=== PATIENT | female | born 1970 | race Caucasian/White ===

== ENCOUNTER 2019-02-03 12:26 | Emergency (ER) | payer OTHER ==
[~2019-02-03] VITALS: Ht 165.1 cm; Wt 90.7 kg
--- OUTSIDE RECORDS SUMMARY | 2019-02-03 12:29 | XMS REPORT ---
Author Author POLA BRANDT Organization [facility] Address [address] [place] [address] Care Team Providers Care Finance Advisor Name Role Phone KARLYARAVINDPOLA Unavailable PROBLEMS Type Condition ICD9-CM Code CFC21-VG Code Onset Dates Condition Status SNOMED Code Problem Mixed hyperlipidemia E78.2 Active 667174241 Problem Vitamin D deficiency E55.9 Active 04350191 ALLERGIES No Information ENCOUNTERS Encounter Location Date Diagnosis [facility] [id number] [place] [phone]- [phone] Jan, [facility] [address] [place] [phone] Dec, [facility] [id number] [place] [address] 40346- 2454 Dec, Pain in right shoulder M25.511 ; Pain in left shoulder M25.512 and Rash R21 [facility] [address] [place] [address] [phone]- [phone] Dec, Pain in right shoulder M25.511 ; Pain in left shoulder M25.512 and Rash R21 IMMUNIZATIONS No Known Immunizations SOCIAL HISTORY Never Assessed REASON FOR VISIT Medication question PLAN OF CARE VITAL SIGNS MEDICATIONS Unknown Medications RESULTS No Results PROCEDURES No Known procedures INSTRUCTIONS MEDICATIONS ADMINISTERED No Known Medications MEDICAL (GENERAL) HISTORY Type Description Date Surgical History Hysterectomy 05/2017 Hospitalization History Surgery 05/2017
--- OUTSIDE RECORDS SUMMARY | 2019-02-03 12:29 | XMS REPORT ---
Author Author POLA BRANDT Organization [facility] [place] Address [address] [place] [address] Care Team Providers Care Assistant Real Estate Manager Name Role Phone KARLYARAVINDPOLA Unavailable PROBLEMS Type Condition ICD9-CM Code [id number]-VH Code Onset Dates Condition Status SNOMED Code Problem Mixed hyperlipidemia E78.2 Active 906698754 Problem Vitamin D deficiency E55.9 Active 55124185 ALLERGIES No Information ENCOUNTERS Encounter Location Date Diagnosis [facility] [place] [id number] [place] [phone] Jan, [facility] [place] [id number] [place] [address] [phone] Dec, [facility] [place] [address] [place] [address] [phone]- [phone] Dec, Pain in right shoulder M25.511 ; Pain in left shoulder M25.512 and Rash R21 [facility] [place] [address] [place] [address] [phone] Dec, Pain in right shoulder M25.511 ; Pain in left shoulder M25.512 and Rash R21 IMMUNIZATIONS No Known Immunizations SOCIAL HISTORY Never Assessed REASON FOR VISIT Lab results PLAN OF CARE VITAL SIGNS MEDICATIONS Medication Instructions Dosage Frequency Start Date End Date Duration Status Vitamin D (Ergocalciferol) 25892 UNIT Orally once weekly 1 capsule DecMar, 12 weeks Active RESULTS No Results PROCEDURES No Known procedures INSTRUCTIONS MEDICATIONS ADMINISTERED No Known Medications MEDICAL (GENERAL) HISTORY Type Description Date Surgical History Hysterectomy 05/2017 Hospitalization History Surgery 05/2017
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
--- OUTSIDE RECORDS SUMMARY | 2019-02-03 12:30 | XMS REPORT ---
Author Author KARLYARAVINDPOLA Organization [facility] Address [address] [place] [address] Care Team Providers Care Assembler Tractor Name Role Phone BRANDTPOLA Prince Unavailable PROBLEMS Type Condition ICD9-CM Code PTA65-RD Code Onset Dates Condition Status SNOMED Code Problem Mixed hyperlipidemia E78.2 Active 725457708 Problem Vitamin D deficiency E55.9 Active 20897000 ALLERGIES No Information ENCOUNTERS Encounter Location Date Diagnosis [facility] [id number] [place] [address] [phone] Jan, [facility] [id number] [place] [address] [phone] Dec, [facility] [address] [place] [address] [phone] Dec, Pain in right shoulder M25.511 ; Pain in left shoulder M25.512 and Rash R21 [facility] [address] [place] [address] [phone] Dec, Pain in right shoulder M25.511 ; Pain in left shoulder M25.512 and Rash R21 IMMUNIZATIONS No Known Immunizations SOCIAL HISTORY Never Assessed REASON FOR VISIT Lab (walk-in) PLAN OF CARE VITAL SIGNS MEDICATIONS Unknown Medications RESULTS No Results PROCEDURES Procedure Date Ordered Result Body Site X-RAY EXAM OF KNEE, 3 January 03, 2018 X-RAY EXAM OF HAND January 03, 2018 LIPID PANEL January 03, 2018 COMPREHEN METABOLIC PANEL January 03, 2018 ASSAY THYROID STIM HORMONE January 03, 2018 ANTINUCLEAR ANTIBODIES January 03, 2018 ASSAY OF VITAMIN D January 03, 2018 RBC SED RATE, AUTOMATED January 03, 2018 COMPLETE CBC W/AUTO DIFF WBC January 03, 2018 RHEUMATOID FACTOR, QUANT January 03, 2018 C-REACTIVE PROTEIN January 03, 2018 INSTRUCTIONS MEDICATIONS ADMINISTERED No Known Medications MEDICAL (GENERAL) HISTORY Type Description Date Surgical History Hysterectomy 05/2017 Hospitalization History Surgery 05/2017
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
[2019-02-03] MEDS ORDERED: HOLD METFORMIN - RECEIVED CONTRAST 20 ML VIAL IV SCH (13:00)
[2019-02-03] MEDS ORDERED: NS 100 ML (IVPB) BAG IV ONE (13:00)
[2019-02-03] MEDS ORDERED: CATHETER FLUSH 10 ML SYR IV PRN (13:00)
[2019-02-03] MEDS ORDERED: IOHEXOL 350 MG/ML 100 ML (OMNIPAQUE 350) VIAL IV ONE (13:00)
[2019-02-03 13:10] LABS: BASOPHILS % (AUTO) 1 % (0-10); EOSINOPHILS % (AUTO) 3 % (0-10); HEMATOCRIT 46 % (35-52); HEMOGLOBIN 15.6 G/DL (11.5-16.0); LYMPHOCYTES % (AUTO) 37 % (12-44); MEAN CORPUSCULAR HEMOGLOBIN 30 PG (25-34); MEAN CORPUSCULAR HGB CONC 34 G/DL (32-36); MEAN CORPUSCULAR VOLUME 90 FL (80-99); MEAN PLATELET VOLUME 9.9 FL (7.4-10.4); MONOCYTES % (AUTO) 7 % (0-12); NEUTROPHILS % (AUTO) 51 % (42-75); PLATELET COUNT 216 10^3/uL (130-400); RED CELL DISTRIBUTION WIDTH 12.5 % (10.0-14.5); WHITE BLOOD COUNT 6.3 10^3/uL (4.3-11.0)
[2019-02-03 13:11] LABS: BASOPHILS # (AUTO) 0.1 10^3/uL (0.0-0.1); EOSINOPHILS # (AUTO) 0.2 10^3/uL (0.0-0.3); LYMPHOCYTES # (AUTO) 2.4 X 10^3 (1.0-4.0); MONOCYTES # (AUTO) 0.5 X 10^3 (0.0-1.0); NEUTROPHILS # (AUTO) 3.2 X 10^3 (1.8-7.8)
[2019-02-03 13:25] LABS: ALANINE AMINOTRANSFERASE 20 U/L (0-55); ALKALINE PHOSPHATASE 109 U/L (40-136); BILIRUBIN,TOTAL 0.4 MG/DL (0.1-1.0); BUN/CREATININE RATIO 15; CALCIUM 9.3 MG/DL (8.5-10.1); CARBON DIOXIDE 19 MMOL/L (21-32); CHLORIDE 102 MMOL/L (98-107); GFR ESTIMATED > 60; GLUCOSE 144 MG/DL (70-105); POTASSIUM 3.5 MMOL/L (3.6-5.0); SODIUM 144 MMOL/L (135-145); TOTAL PROTEIN 7.3 GM/DL (6.4-8.2)
[2019-02-03 13:26] LABS: ALBUMIN 4.4 GM/DL (3.2-4.5)
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
[2019-02-03 14:30] VITALS: BP 156/62
== END 2019-02-03 14:30 | disposition home or self-care (01) ==
LOC: ER FS 12:26
DX: S16.1XXA Strain of muscle, fascia and tendon at neck level, initial encounter (principal); R20.2 Paresthesia of skin; M79.604 Pain in right leg; V58.6XXA Passenger in pick-up truck or van injured in noncollision transport accident in traffic accident, initial encounter
CPT/HCPCS: 36415; 70450; 71260; 72125; 74177; 80053; 85025

== ENCOUNTER → 2019-02-16 | Outpatient (CLI) | payer OTHER ==
--- NOTE | 2019-02-16 10:48 | Diagnostic Imaging Report ---
INDICATION: Right shoulder pain. TIME OF EXAM: 10:36 AM 2 views right shoulder were obtained. FINDINGS: Glenohumeral and acromioclavicular alignment are normal. Acromiohumeral space is normal. No fracture or dislocation is seen. IMPRESSION: No acute bony abnormality is detected. Dictated by: Dictated on workstation # [id number]
== END ==
LOC: RAD FS 10:34
PROVIDERS: ATTEND Family Medicine
DX: M25.511 Pain in right shoulder (principal)
CPT/HCPCS: 73030

== ENCOUNTER 2020-03-17 21:45 | Emergency (ER) | payer SELFPAY ==
[~2020-03-17] VITALS: Ht 165.1 cm; Wt 97.7 kg
--- NOTE | 2020-03-17 22:23 | ED Fever ---
History of Present Illness General Chief Complaint: Cough/Cold/Flu Symptoms Stated Complaint: FEVER,BODY ACHES Source: patient Exam Limitations: no limitations History of Present Illness Date Seen by Provider: Mar 17, 2020 Time Seen by Provider: 21:55 Initial Comments The patient is a 49-year-old female who presents for evaluation of fever, general malaise, body aches, and slight cough which started this evening. She states that she came to be tested for the coronavirus. She denies any significant shortness of breath, chest pain, nausea or vomiting, diarrhea, diaphoresis, dizziness, palpitations or syncope. She is alert and oriented 4, calm, and appears to be in no distress this time. She denies any significant past medical history. She denies any recent travel or sick contacts. Timing/Duration: this afternoon Fever Quality: low grade Fever Therapy [employer]OR[employer] MANAGER: Tylenol Associated Symptoms: cough Allergies and Home Medications Allergies Coded Allergies: No Known Drug Allergies (Unverified , 02/03/19) Patient Home Medication List Home Medication List Reviewed: Yes Review of Systems Review of Systems Constitutional: fever EENTM: nose congestion Respiratory: cough Cardiovascular: no symptoms reported Gastrointestinal: no symptoms reported Genitourinary: no symptoms reported Musculoskeletal: muscle pain Skin: no symptoms reported Psychiatric/Neurological: No Symptoms Reported Hematologic/Lymphatic: No Symptoms Reported Immunological/Allergic: no symptoms reported All Other Systems Reviewed Negative Unless Noted: Yes Past Wvptcsx-Knsytr-Mndnnp Hx Past Med/Social Hx: Reviewed Nursing Past Med/Soc Hx Patient Social History 2nd Hand Smoke Exposure: No Recent Foreign Travel: No Contact w/Someone Who Travel: No Recent Hopitalizations: No Seasonal Allergies Seasonal Allergies: No Past Medical History Hysterectomy Respiratory: No Cardiac: No 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 oz. 90.334932tq; BMI Method:Stated General Appearance: WD/WN, no apparent distress Eyes: Bilateral Eye Normal Inspection, Bilateral Eye PERRL, Bilateral Eye EOMI HEENT: PERRL/EOMI, pharynx normal Neck: full range of motion, normal inspection Respiratory: lungs clear, normal breath sounds, no respiratory distress, no accessory muscle use Cardiovascular: no edema, no JVD, tachycardia Gastrointestinal: non tender, soft, no pulsatile mass Neurologic/Psychiatric: devulcanizer head II-XII nml as tested, no motor/sensory deficits, alert, normal mood/affect, oriented x 3 Skin: normal color, warm/dry Progress/Results/Core Measures Suspected Sepsis SIRS Temperature: Pulse: Respiratory Rate: Blood Pressure / Mean: Results/Orders Lab Results Laboratory Tests Test 03/17/20 22:10 Range/Units My Orders Orders - RADHANBA Membreno DO Coronavirus Sars-Cov-2 So 2019 (03/17/20 22:01) Chest 1 View Ap/Pa Only (03/17/20 22:01) Vital Signs/I&O 03/17/20 03/17/20 21:49 21:49 Temp 37.4 Pulse 116 Resp 16 B/P (MAP) 175/108 (130) O2 Delivery Room Air Room Air Capillary Refill : Progress Note : Progress Note @2308 - patient advised that her symptoms are likely viral nature. Her coronavirus tests will not result for another day or 2 and she'll be notified if positive. Advised patient to take Tylenol and/or ibuprofen for fever relief is needed. She will go home with an inhaler and some prednisone for the cough. Advised the patient to follow-up with her PCP in the next 1-2 days and to return to the emergency Department immediately for new or worsening symptoms. Departure Impression Primary Impression: Viral syndrome Disposition: HOME, SELF-CARE Condition: Stable Departure-Patient Inst. Decision time for Depature: 23:10 Referrals: NO,LOCAL PHYSICIAN (PCP/Family) Primary Care Physician Patient Instructions: Cough, Runny Nose, and the Common Cold (DC), Viral Upper Respiratory Infection, Adult (DC) Add. Discharge Instructions: You will be notified if you coronavirus test comes back positive within the next 2 days. For now you should be self quarantining away from others. Take Tylenol or ibuprofen for fever and pain relief is needed. Take the prescribed medicine as directed for cough. Return to the emergency Department immediately for new or worsening symptoms. Scripts Benzonatate (TESSALON PERLLINDA) 100 Mg Capsule 100 MG PO Q8H for 10 Days, #20 CAP Prov: RADHA,NBA B DO 03/17/20 Prednisone (Prednisone) 20 Mg Tab 40 MG PO DAILY for 5 Days, #10 TAB 0 Refills Prov: NBA GARCIA DO 03/17/20 Albuterol Sulfate (PROAIR HFA) 1 Puff Puff 2 PUFF IH Q4H PRN for DYSPNEA for 10 Days, #1 PUFF 1 PUFF = 90 MCG Prov: NBA GARCIA DO 03/17/20 NBA GARCIA DO Mar 17, 2020 22:22
[2020-03-17] MEDS ORDERED: RT-ALBUINH IH (23:15)
[2020-03-17] MEDS ORDERED: PRD20T PO (23:15)
[2020-03-17] MEDS ORDERED: BENZ100C18 PO (23:16)
[2020-03-17 23:20] VITALS: BP 171/101
--- OUTSIDE RECORDS SUMMARY | 2020-03-18 01:20 | XMS REPORT | Continuity of Care Document ---
Author Organization Unknown Address Unknown Phone Unavailable Allergies Active Description Code Type Severity Reaction Onset Reported/Identified Relationship to Patient Clinical Status Yes No Known Drug Allergies [id number] Drug Allergy Unknown N/A 02/03/2019 Medications There is no data. Problems Date Dx Coded Attending Type Code Diagnosis Diagnosed By 02/03/2019 Ot M79.604 PA IN IN RIGHT LEG 02/03/2019 Ot R07.9 CHES T PAIN, UNSPECIFIED 02/03/2019 Ot R20.2 PARE STHESIA OF SKIN 02/03/2019 Ot S16.1XXA S TRAIN OF MUSCLE, FASCIA AND TENDON AT N 02/03/2019 Ot V58.6XXA P ASNGR IN PK- UP/VAN [facility] 02/05/2019 Ot M79.604 PA IN IN RIGHT LEG 02/05/2019 Ot R07.9 CHES T PAIN, UNSPECIFIED 02/05/2019 Ot R20.2 PARE STHESIA OF SKIN 02/05/2019 Ot S16.1XXA S TRAIN OF MUSCLE, FASCIA AND TENDON AT N 02/05/2019 Ot V58.6XXA P ASNGR IN PK- UP[facility] 02/17/2019 CHRISTEN GRIFFIN MD Ot M25.511 PAIN IN RIGHT SHOULDER 03/17/2020 CHRISTEN GRIFFIN MD Ot M25.511 PAIN IN RIGHT SHOULDER Procedures There is no data. Results Test Result Range VITAMIN D, 25-H - 01/03/18 08:31 VITAMIN D,25-OH,TOTAL,IA 13 ng/mL 30-10 0 Complete blood count (CBC) with automate d white blood cell (WBC) differential - 02/03/19 13:00 Blood leukocytes automated count (number/volume) 6.3 10*3/uL 4.3-11.0 Blood erythrocytes automated count (number/volume) 5.16 10*6/uL 4.35-5.85 Venous blood hemoglobin measurement (mass/volume) 15.6 g/dL 11.5-16.0 Blood hematocrit (volume fraction) 46 % 35-52 Automated erythrocyte mean corpuscular volume 90 [ foz_us] 80-99 Automated erythrocyte mean corpuscular h emoglobin (mass per erythrocyte) 30 pg 25-34 Automated erythrocyte mean corpuscular h emoglobin concentration measurement (mass/volume) 34 g/dL 32-36 Automated erythrocyte distribution width ratio 12. 5 % 10.0- 14.5 Automated blood platelet count (count/volume) 216 10*3/uL 130-400 Automated blood platelet mean volume measurement 9.9 [foz_us] 7.4-10.4 Automated blood neutrophils/100 leukocytes 51 % 42-75 Automated blood lymphocytes/100 leukocytes 37 % 12-44 Blood monocytes/100 leukocytes 7 % 0-12 Automated blood eosinophils/100 leukocytes 3 % 0-10 Automated blood basophils/100 leukocytes 1 % 0-10 Blood neutrophils automated count (number/volume) 3.2 10*3 1.8-7.8 Blood lymphocytes automated count (number/volume) 2.4 10*3 1.0-4.0 Blood monocytes automated count (number/volume) 0. 5 10*3 0.0-1.0 Automated eosinophil count 0.2 10*3/uL 0 .0-0.3 Automated blood basophil count (count/volume) 0.1 10*3/uL 0.0-0.1 Comprehensive metabolic panel - 02/03/19 13:00 Serum or plasma sodium measurement (moles/volume) 144 mmol/L 135-145 Serum or plasma potassium measurement (moles/volume) 3.5 mmol/L 3.6-5.0 Serum or plasma chloride measurement (moles/volume) 102 mmol/L 98-107 Carbon dioxide 19 mmol/L 21-32 Serum or plasma anion gap determination (moles/volume) 23 mmol/L 5-14 Serum or plasma urea nitrogen measurement (mass/volume ) 12 mg/dL 7-18 Serum or plasma creatinine measurement (mass/volume) 0.80 mg/dL 0.60-1.30 Serum or plasma urea nitrogen/creatinine mass ratio 15 NRG Serum or plasma creatinine measurement w ith calculation of estimated glomerular filtration rate > NRG Serum or plasma glucose measurement (mass/volume) 144 mg/dL 70-105 Serum or plasma calcium measurement (mass/volume) 9.3 mg/dL 8.5-10.1 Serum or plasma total bilirubin measurement (mass/volu me) 0.4 mg/dL 0.1-1.0 Serum or plasma alkaline phosphatase christiana surement (enzymatic activity/volume) 109 U/L 40-136 Serum or plasma aspartate aminotransfera se measurement (enzymatic activity/volume) 18 U/L 5-34 Serum or plasma alanine aminotransferase measurement (enzymatic activity/volume) 20 U/L 0-55 Serum or plasma protein measurement (mass/volume) 7.3 g/dL 6.4-8.2 Serum or plasma albumin measurement (mass/volume) 4.4 g/dL 3.2-4.5 CALCIUM CORRECTED 9.0 mg/dL 8.5-10.1 Encounters ACCT No. Visit Date/Time Discharge Status Pt. Type Provider Facility Loc./Unit Complaint [id number] 02/16/2019 10:00:00 02/16/2019 23:59: 59 CLS Outpatient ADRIANA TOBAR [facility] [id number] 01/03/2018 08:00:00 Document Registration [id number] 02/16/2019 10:34:00 019 23:59:59 CLS Outpatient GABY PRICE, CHRISTEN Kenny [facility] RAD FS M25.511 [id number] 03/17/2020 21:47:[address] Emergency RADHA ARANGO DO [facility] ER FS FEVER,BODY ACHES [id number] 02/03/2019 13:11:00 Document Registration
--- NOTE | 2020-03-18 05:24 | Diagnostic Imaging Report ---
INDICATION: Fever. COMPARISON: None. FINDINGS: Single frontal view of the chest demonstrates normal heart size and pulmonary vascularity. The lungs are well aerated and clear. No large pleural effusion or pneumothorax is seen. The visualized osseous structures show no acute abnormalities. IMPRESSION: 1. No acute cardiopulmonary process. Dictated by: Dictated on workstation # [id number]
== END 2020-03-17 23:20 | disposition home or self-care (01) ==
LOC: EDUNIT# 21:45 → ER FS 21:47
DX: B34.9 Viral infection, unspecified (principal); Z20.828 Contact with and (suspected) exposure to other viral communicable diseases
CPT/HCPCS: 71045; 87635

== ENCOUNTER 2020-12-05 08:08 | Outpatient (CLI) | payer SELFPAY ==
[~2020-12-05] VITALS: Ht 165.1 cm; Wt 90.9 kg
[2020-12-05 08:03] VITALS: BP 155/99
[~2020-12-05 08:08] MED LIST: BENZ100C18 PO; PRD20T PO; RT-ALBUINH IH
[2020-12-05] MEDS ORDERED: BAMLANIVIMAB (NON FORM) 700 MG in NS (IVPB) 100 ML IV ONE (08:15)
[2020-12-05] MEDS ORDERED: diphenhydrAMINE 50 MG/ML INJ (BENADRYL) IV PRN (08:15)
[2020-12-05] MEDS ORDERED: EPINEPHrine INJECTION 1 MG/ML AMP IM PRN (08:15)
[2020-12-05 09:45] VITALS: BP 141/86
== END 2020-12-05 10:00 | disposition home or self-care (01) ==
LOC: INFUSION 08:08
PROVIDERS: ATTEND Family Medicine
DX: Z23 Encounter for immunization (principal); U07.1 COVID-19

== ENCOUNTER 2023-07-27 12:33 | Emergency (ER) | payer SELFPAY ==
[~2023-07-27 12:33] MED LIST changes: +ALBU8.5H6 IH; -RT-ALBUINH IH
[2023-07-27] MEDS ORDERED: NS IV 1000 ML 1,000 ML IV STA ×2 (12:49→13:54)
[2023-07-27] MEDS ORDERED: ONDANSETRON INJECTION 4 MG/2 ML (SDV) IVP STA (12:49)
[2023-07-27 13:00] LABS: BASOPHILS # (AUTO) 0.1 10^3/uL (0.0-0.1); BASOPHILS % (AUTO) 1 % (0-10); EOSINOPHILS # (AUTO) 0.2 10^3/uL (0.0-0.3); EOSINOPHILS % (AUTO) 2 % (0-10); HEMATOCRIT 50 % (35-52); HEMOGLOBIN 16.3 g/dL (11.5-16.0); LYMPHOCYTES # (AUTO) 2.7 10^3/uL (1.0-4.0); LYMPHOCYTES % (AUTO) 37 % (12-44); MEAN CORPUSCULAR HEMOGLOBIN 30 pg (25-34); MEAN CORPUSCULAR HGB CONC 33 g/dL (32-36); MEAN CORPUSCULAR VOLUME 91 fL (80-99); MONOCYTES # (AUTO) 0.6 10^3/uL (0.0-1.0); MONOCYTES % (AUTO) 8 % (0-12); NEUTROPHILS # (AUTO) 3.7 10^3/uL (1.8-7.8); NEUTROPHILS % (AUTO) 51 % (42-75); PLATELET COUNT 176 10^3/uL (130-400); WHITE BLOOD COUNT 7.2 10^3/uL (4.3-11.0)
--- NOTE | 2023-07-27 13:07 | ED General ---
General Chief Complaint: Abdominal/GI Problems Stated Complaint: VOMITING; GEN WEAKNESS; DIZZINESS; DIAPHORESIS Nursing Triage Note: Patient has presented to ER with cc of dizziness, nausea, and vomiting. Source of Information: Patient History of Present Illness Date Seen by Provider: Jul 27, 2023 Time Seen by Provider: 12:35 Initial Comments 52-year-old female presenting with complaints of waking up with dizziness this morning that resolved but then an hour prior to arrival in the ED she became dizzy had nausea and vomiting as well as breaking out in a sweat. She states just laying in the bed she still feels dizzy. She did pass her dose of lisinopril last night and her blood pressure is elevated to 174/96 here on arrival to the ED. She denies having any chest pain or abdominal pain. She has no numbness or weakness in her arms or legs but states that she feels overall generally weak. She denies any pain or burning with urination. She has not had any diarrhea. Family in the room is concerned that she might be diabetic and wanted her tested for that. Timing/Duration: 4-6 Hours Severity: Moderate Modifying Factors: worse with Movement Associated Systoms: No Chest Pain, No Cough; Diaphoresis; No Fever/Chills, No Headaches, No Loss of Appetite; Malaise, Nausea/Vomiting; No Rash, No Seizure, No Shortness of Air, No Syncope; Weakness Allergies and Home Medications Allergies Coded Allergies: No Known Drug Allergies (Unverified , 02/03/19) Patient Home Medication List Home Medication List Reviewed: Yes Albuterol Sulfate (Ventolin Hfa) 1 Puff Puff, 2 PUFF IH Q4H PRN for DYSPNEA Prescribed by: NBA GARCIA on 03/17/20 231 Benzonatate (Tessalon Perles) 100 Mg Capsule, 100 MG PO Q8H Prescribed by: NBA GARCIA on 03/17/20 231 Meclizine HCl (Meclizine HCl) 25 Mg Tablet, 25 MG PO TID PRN for DIZZINESS Prescribed by: SUMI CHE on 07/27/23 142 Ondansetron (Ondansetron Odt) 4 Mg Tab.rapdis, 4 MG PO Q6H PRN for NAUSEA/VOMITING Prescribed by: SUMI CHE on 07/27/23 142 Prednisone (Prednisone) 20 Mg Tab, 40 MG PO DAILY Prescribed by: NBA GARCIA on 03/17/20 8013 Review of Systems Review of Systems Constitutional: No chills; diaphoresis, dizziness; No fever; malaise, weakness EENTM: no symptoms reported Respiratory: No cough, No short of breath Cardiovascular: No chest pain Gastrointestinal: No abdominal pain, No constipation, No diarrhea; nausea, vomiting Genitourinary: No dysuria : No Musculoskeletal: no symptoms reported Skin: no symptoms reported Psychiatric/Neurological: See HPI Past Holcjfz-Xkntec-Wfxzmc Hx Seasonal Allergies Seasonal Allergies: No Past Medical History Surgery/Hospitalization HX: Hypertension Surgeries: Yes Hysterectomy Respiratory: No Cardiac: No Neurological: No FOOTBALL SCOUT History: Hysterectomy Genitourinary: No Gastrointestinal: No Musculoskeletal: No Endocrine: No HEENT: No Cancer: No Psychosocial: No Integumentary: No Physical Exam Vital Signs Vital Signs - First Documented 07/27/23 12:55 Pulse 79 Resp 18 Pulse Ox 94 O2 Delivery Room Air Capillary Refill : Height, Weight, BMI Height: 5'5.00" Weight: 200lbs. oz. 90.552022fo; 35.00 BMI Method:Stated General Appearance: Mild Distress (Appears to not feel well) HEENT: PERRL/EOMI, Pharynx Normal Neck: Full Range of Motion, Normal Inspection, Non Tender, Supple Respiratory: Chest Non Tender, Lungs Clear, Normal Breath Sounds, No Accessory Muscle Use, No Respiratory Distress Cardiovascular: Regular Rate, Rhythm, Normal Peripheral Pulses Gastrointestinal: Normal Bowel Sounds, No Pulsatile Mass, Non Tender, Soft Rectal: Deferred Extremity: Normal Capillary Refill, Normal Inspection, No Pedal Edema Neurologic/Psychiatric: Alert, Oriented x3, plug grower II-XII Norm as Tested Skin: Normal Color, Warm/Dry Progress/Results/Core Measures Suspected Sepsis SIRS Temperature: Pulse: 79 Respiratory Rate: 18 Laboratory Tests 07/27/23 12:51: White Blood Count 7.2 Blood Pressure / Mean: Laboratory Tests 07/27/23 12:51: Creatinine 0.77, INR Comment 0.9, Platelet Count 176, Total Bilirubin 0.4 Results/Orders Lab Results Laboratory Tests Test 07/27/23 12:51 07/27/23 13:55 Range/Units White Blood Count 7.2 4.3-11.0 10^3/uL Red Blood Count 5.47 H 3.80-5.11 10^6/uL Hemoglobin 16.3 H 11.5-16.0 g/dL Hematocrit 50 35-52 % Mean Corpuscular Volume 91 80-99 fL Mean Corpuscular Hemoglobin 30 25-34 pg Mean Corpuscular Hemoglobin Concent 33 32-36 g/dL Red Cell Distribution Width 12.3 10.0-14.5 % Platelet Count 176 130-400 10^3/uL Mean Platelet Volume 10.0 9.0-12.2 fL Immature Granulocyte % (Auto) 1 % Neutrophils (%) (Auto) 51 42-75 % Lymphocytes (%) (Auto) 37 12-44 % Monocytes (%) (Auto) 8 0-12 % Eosinophils (%) (Auto) 2 0-10 % Basophils (%) (Auto) 1 0-10 % Neutrophils # (Auto) 3.7 1.8-7.8 10^3/uL Lymphocytes # (Auto) 2.7 1.0-4.0 10^3/uL Monocytes # (Auto) 0.6 0.0-1.0 10^3/uL Eosinophils # (Auto) 0.2 0.0-0.3 10^3/uL Basophils # (Auto) 0.1 0.0-0.1 10^3/uL Immature Granulocyte # (Auto) 0.1 0.0-0.1 10^3/uL Prothrombin Time 12.2 12.2-14.7 SEC INR Comment 0.9 0.8-1.4 Activated Partial Thromboplast Time 24 24-35 SEC Sodium Level 142 135-145 MMOL/L Potassium Level 3.3 L 3.6-5.0 MMOL/L Chloride Level 104 98-107 MMOL/L Carbon Dioxide Level 25 21-32 MMOL/L Anion Gap 13 5-14 MMOL/L Blood Urea Nitrogen 7 7-18 MG/DL Creatinine 0.77 0.60-1.30 MG/DL Estimat Glomerular Filtration Rate 92 BUN/Creatinine Ratio 9 Glucose Level 122 H 70-105 MG/DL Calcium Level 9.3 8.5-10.1 MG/DL Corrected Calcium 9.2 8.5-10.1 MG/DL Magnesium Level 2.4 1.6-2.4 MG/DL Total Bilirubin 0.4 0.1-1.0 MG/DL Aspartate Amino Transf (AST/SGOT) 28 5-34 U/L Alanine Aminotransferase (ALT/SGPT) 34 0-55 U/L Alkaline Phosphatase 127 40-136 U/L Troponin I < 0.30 <0.30 NG/ML Pro-B-Type Natriuretic Peptide 110.1 <125.0 PG/ML Total Protein 7.4 6.4-8.2 GM/DL Albumin 4.1 3.2-4.5 GM/DL Lipase 16 8-78 U/L Urine Color YELLOW Urine Clarity CLEAR Urine pH 7.0 5-9 Urine Specific [place] 1.015 L 1.016-1.022 Urine Protein NEGATIVE NEGATIVE Urine Glucose (UA) NEGATIVE NEGATIVE Urine Ketones NEGATIVE NEGATIVE Urine Nitrite NEGATIVE NEGATIVE Urine Bilirubin NEGATIVE NEGATIVE Urine Urobilinogen 0.2 < = 1.0 MG/DL Urine Leukocyte Esterase NEGATIVE NEGATIVE Urine RBC (Auto) TRACE-I H NEGATIVE Urine RBC RARE /HPF Urine WBC 0-2 /HPF Urine Squamous Epithelial Cells 5-10 /HPF Urine Crystals NONE /LPF Urine Bacteria NEGATIVE /HPF Urine Casts NONE /LPF Urine Mucus NEGATIVE /LPF Urine Culture Indicated NO Urine Opiates Screen NEGATIVE NEGATIVE Urine Oxycodone Screen NEGATIVE NEGATIVE Urine Methadone Screen NEGATIVE NEGATIVE Urine Propoxyphene Screen NEGATIVE NEGATIVE Urine Barbiturates Screen NEGATIVE NEGATIVE Ur Tricyclic Antidepressants Screen NEGATIVE NEGATIVE Urine Phencyclidine Screen NEGATIVE NEGATIVE Urine Amphetamines Screen NEGATIVE NEGATIVE Urine Methamphetamines Screen NEGATIVE NEGATIVE Urine Benzodiazepines Screen NEGATIVE NEGATIVE Urine Cocaine Screen NEGATIVE NEGATIVE Urine Cannabinoids Screen NEGATIVE NEGATIVE My Orders Orders - SUMI CHE MD Cbc And Automated Diff (07/27/23 12:36) Magnesium (07/27/23 12:36) Ekg Tracing (07/27/23 12:36) Comprehensive Metabolic Panel (07/27/23 12:36) Protime With Inr (07/27/23 12:36) Partial Thromboplastin Time (07/27/23 12:36) O2 (07/27/23 12:36) Monitor-Rhythm Ecg Trace Only (07/27/23 12:36) Ed Iv/Invasive Line Start (07/27/23 12:36) Lipase (07/27/23 12:36) Troponin I Fs (07/27/23 12:36) Probnp Fs (07/27/23 12:36) Ua Culture If Indicated (07/27/23 12:36) Drug Screen Stat (Urine) (07/27/23 12:36) Ns Iv 1000 Ml (Ns Iv 1000 Ml) (07/27/23 12:49) Ondansetron Injection (Ondansetron Inj (07/27/23 12:49) Ct Head Wo (07/27/23 12:49) Ns Iv 1000 Ml (Ns Iv 1000 Ml) (07/27/23 13:54) Meclizine Tablet (Meclizine Tablet) (07/27/23 13:54) Troponin I Fs (07/27/23 14:30) Vital Signs/I&O 07/27/23 12:55 Pulse 79 Resp 18 B/P (MAP) Pulse Ox 94 O2 Delivery Room Air Capillary Refill : Progress Note #1: Progress Note Differential diagnosis includes myocardial infarction,stroke, hypertensive urgency, UTI, electrolyte imbalance, pancreatitis. Obtain peripheral IV access and give normal saline 1 L IV fluid bolus for hydration along with Zofran 4 mg IV for nausea and vomiting. Send labs for complete blood count, comprehensive metabolic profile, troponin, coagulation factors, lipase, magnesium, proBNP. Urinalysis to look for signs of infection. CT scan of the head to look for acute intracranial process to cause her hypertension, nausea, vomiting and dizziness. Electrocardiogram to look for acute ischemia or cardiac arrhythmia. Placed on cardiac monitoring manager for monitoring her heart rate and rhythm. My Initial interpretation was that she had sinus rhythm with heart rate in the 80s. Progress Note #2: Progress Note On my personal review and interpretation of her labs she had no acute significant abnormality on her Complete blood count or Comprehensive metabolic profile. Her Coagulation factors were not elevated to indicate a coagulopathy. Her troponin was negative at <0.3 and Lipase was not elevated. CT head without contrast is negative for acute process. ECG did not show ischemia. Patient was feeling a little better after Zofran for nausea and as IV fluids are infusing. Awaiting Urinalysis and will repeat Normal saline 1 Liter IV fluid bolus for hydration and try a dose of Meclizine 25 mg po for vertigo type symptoms. Progress Note #3: Progress Note Urinalysis and urine drug screen are negative for infection or drugs in her system to indicate a reason for her dizziness and vertigo symptoms. She has not had emesis here in ED after getting Zofran and she kept down the Meclizine. Counseled on test results and treatment plan for home. Counseled on follow up and return precautions. Continue meclizine 25 mg p.o. 3 times daily for vertigo and dizziness. This will also help with nausea. Zofran ODT 4 mg p.o. every 6 hours as needed nausea and vomiting. Counseled to liquid diet for at least 24 hours and then advance to bland and regular foods that she tolerates after that. Check back with clinic for continued concerns. ECG Initial ECG Impression Date: Jul 27, 2023 Initial ECG Impression Time: 12:44 Initial ECG Rate: 84 Initial ECG Rhythm: Normal Sinus Initial ECG Comparisson: No Previous ECG Available Comment On my initial interpretation review her electrocardiogram shows a sinus rhythm with heart rate of 84 bpm. [place] interval [address] elevation. QT interval 395 ms with a QTc interval 436 ms. She has no prior tracing available for comparison. Diagnostic Imaging Diagonstic Imaging: CT Plain Films/CT/US/NM/MRI: head Comments [facility] [place] NAME: JORDAN WHITE [facility] REC#: [id number] PT STATUS: REG ER : 1970 PHYSICIAN: SUMI CHE MD ADMIT DATE: 07/27/23/ER FS Draft Date of Exam:07/27/23 CT HEAD WO PROCEDURE: CT head without contrast. TECHNIQUE: Multiple contiguous axial images were obtained through the brain without the use of intravenous contrast. Auto Exposure Controls were utilized during the CT exam to meet ALARA standards for radiation dose reduction. INDICATION: Dizziness with nausea and vomiting. COMPARISON: Correlation is made with prior head CT from 02/03/2019. FINDINGS: The ventricles and sulci are within normal limits. No sulcal effacement or midline shift is identified. No acute intra-axial or extra-axial hemorrhage is detected. Cisterns are patent. Visualized paranasal sinuses are clear. IMPRESSION: No acute intracranial process is detected. Dictated on workstation # [id number] Dict: 07/27/23 1322 Trans: 07/27/23 1327 [id number] Interpreted by: CLIF STERLING MD Electronically signed by: Reviewed: Reviewed by Me Departure Impression Primary Impression: Dizziness Additional Impressions: Nausea & vomiting Qualified Codes: R11.14 - Bilious vomiting Vertigo Disposition: HOME, SELF-CARE Condition: Improved Departure-Patient Inst. Decision time for Depature: 14:27 Referrals: REGGIE ANDREA APRN (PCP) Primary Care Physician [facility] (Family) Primary Care Physician Patient Instructions: Dizziness, Adult ED, Nausea and Vomiting, Adult ED, Vertigo ED Add. Discharge Instructions: Try to keep sipping on fluids to stay well-hydrated. Follow-up with liquid diet for at least the next 24 hours. After that he could try and advance to a more bland diet and regular foods as you tolerate them. Use the meclizine to help with dizziness and nausea. You could also take Zofran dissolving tablet as needed to help with nausea and vomiting. Check back with your primary care provider for continued concerns. All discharge instructions reviewed with patient and/or family. Voiced understanding. Scripts Ondansetron (Ondansetron Odt) 4 Mg Tab.rapdis 4 MG PO Q6H PRN for NAUSEA/VOMITING for 5 Days, #20 TAB 0 Refills Prov: SUMI CHE MD 07/27/23 Meclizine HCl (Meclizine HCl) 25 Mg Tablet 25 MG PO TID PRN for DIZZINESS for 10 Days, #30 TAB 0 Refills Prov: SUMI CHE MD 07/27/23 SUMI CHE MD Jul 27, 2023 13:07
[2023-07-27 13:13] LABS: INR 0.9 (0.8-1.4); POTASSIUM 3.3 MMOL/L (3.6-5.0); PROTHROMBIN TIME PATIENT 12.2 SEC (12.2-14.7)
--- NOTE | 2023-07-27 13:27 | Diagnostic Imaging Report ---
PROCEDURE: CT head without contrast. TECHNIQUE: Multiple contiguous axial images were obtained through the brain without the use of intravenous contrast. Auto Exposure Controls were utilized during the CT exam to meet ALARA standards for radiation dose reduction. INDICATION: Dizziness with nausea and vomiting. COMPARISON: Correlation is made with prior head CT from 02/03/2019. FINDINGS: The ventricles and sulci are within normal limits. No sulcal effacement or midline shift is identified. No acute intra-axial or extra-axial hemorrhage is detected. Cisterns are patent. Visualized paranasal sinuses are clear. IMPRESSION: No acute intracranial process is detected. Dictated by: Dictated on workstation # [id number]
[2023-07-27 13:28] LABS: SODIUM 142 MMOL/L (135-145)
[2023-07-27 13:29] LABS: ALANINE AMINOTRANSFERASE 34 U/L (0-55); ALBUMIN 4.1 GM/DL (3.2-4.5); ALKALINE PHOSPHATASE 127 U/L (40-136); BILIRUBIN,TOTAL 0.4 MG/DL (0.1-1.0); BUN/CREATININE RATIO 9; CALCIUM 9.3 MG/DL (8.5-10.1); CARBON DIOXIDE 25 MMOL/L (21-32); CHLORIDE 104 MMOL/L (98-107); CREATININE SERUM 0.77 MG/DL (0.60-1.30); GFR ESTIMATED 92; GLUCOSE 122 MG/DL (70-105); MAGNESIUM 2.4 MG/DL (1.6-2.4); TOTAL PROTEIN 7.4 GM/DL (6.4-8.2)
[2023-07-27 13:30] LABS: LIPASE 16 U/L (8-78)
[2023-07-27] MEDS ORDERED: MECLIZINE 25 MG TABLET PO STA (13:54)
[2023-07-27 14:09] LABS: BILIRUBIN,URINE NEGATIVE (NEGATIVE); CLARITY,URINE CLEAR; COLOR,URINE YELLOW; GLUCOSE, URINE (UA) NEGATIVE (NEGATIVE); KETONES,URINE NEGATIVE (NEGATIVE); LEUKOCYTE ESTERASE ,URINE NEGATIVE (NEGATIVE); NITRITE,URINE NEGATIVE (NEGATIVE); PROTEIN,URINE NEGATIVE (NEGATIVE)
[2023-07-27 14:13] LABS: BACTERIA,URINE NEGATIVE /HPF; RBC,URINE RARE /HPF; WBC,URINE 0-2 /HPF
[2023-07-27 14:18] LABS: AMPHETAMINE SCREEN, URINE NEGATIVE (NEGATIVE); BARBITURATE SCREEN URINE NEGATIVE (NEGATIVE); CANNABINOID SCREEN, URINE NEGATIVE (NEGATIVE); COCAINE SCREEN URINE NEGATIVE (NEGATIVE); METHADONE STAT NEGATIVE (NEGATIVE); OPIATE SCREEN URINE NEGATIVE (NEGATIVE); OXYCODONE STAT NEGATIVE (NEGATIVE); PROPOXYPHENE STAT NEGATIVE (NEGATIVE); TRICYCLIC ANTIDEPRESSANTS SCRE NEGATIVE (NEGATIVE)
[2023-07-27] MEDS ORDERED: ONDA4TAB11 PO (14:29)
[2023-07-27] MEDS ORDERED: MECL-291 PO (14:29)
== END 2023-07-27 14:35 | disposition home or self-care (01) ==
LOC: EDUNIT# 12:33 → ER FS 12:36
DX: R42 Dizziness and giddiness (principal); R11.2 Nausea with vomiting, unspecified; I10 Essential (primary) hypertension; Z79.899 Other long term (current) drug therapy
CPT/HCPCS: 36415; 70450; 80053; 80306; 81000; 83690; 83735; 83880; 84484; 85025; 85610; 85730; 93005; 93041; 96361; 96374